=== PATIENT | female | born 1970 | race Caucasian/White ===

== ENCOUNTER 2017-01-13 23:34 | Emergency (ER) | payer OTHER ==
[~2017-01-13] VITALS: Ht 182.9 cm; Wt 70.8 kg
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
[2017-01-14 01:03] LABS: MEAN CORPUSCULAR HGB 20.9 PG (27.0-31.0)
[2017-01-14 01:07] LABS: HEMATOCRIT 31.9 % (37-47); MEAN CORPUSCULAR HGB CONC 30.6 G/DL (33.0-37.0); MEAN CORPUSCULAR VOLUME 68.2 FL (81.0-99.0); MEAN PLATELET VOLUME 9.2 FL (7.4-10.4); PLATELET COUNT 236 /CUMM (130-400); RBC DISTRIBUTION WIDTH 18.4 % (11.5-14.5); RED BLOOD CELL CT 4.69 /CUMM (4.20-5.40); WHITE BLOOD CELL COUNT 10.4 /CUMM (4.8-10.8)
[2017-01-14 01:29] VITALS: BP 115/66
--- NOTE | 2017-01-14 04:01 | CT SCAN REPORT ---
EXAMINATION: CTA CHEST FOR AORTIC DISSECTION CLINICAL INFORMATION: Marfan's, chest pain to right shoulder, question dissection COMPARISON: None TECHNIQUE: 95 mL Optiray 320 IV contrast was utilized. Multidetector helical imaging was performed through the chest prior to and following the administration of IV contrast per CTA protocol. Coronal, sagittal, and MIP images of the chest were created. FINDINGS: Although assessment of the aorta on the noncontrast series is somewhat limited due to motion artifact, there are no suspicious findings to suggest intramural hematoma. No evidence of aortic dissection on the postcontrast series. The ascending aorta measures approximately 3.1 cm in diameter. Great vessels are widely patent off the aortic arch, and the visualized portions of the bilateral carotid, subclavian, and vertebral arteries appear widely patent. The origins of the celiac, superior mesenteric, and bilateral renal arteries are patent in the upper abdomen. No regions of consolidation bilaterally. Biapical scarring is noted. No pneumothorax or pleural effusion. The visualized thyroid gland is unremarkable. No mediastinal lymphadenopathy. Cardiac size is within normal limits; no significant pericardial effusion. No filling defects are seen in the main, lobar, or segmental pulmonary arteries to suggest the presence of pulmonary emboli. No axillary lymphadenopathy is present. There is subcentimeter hypoattenuating foci in the visualized liver, too small to characterize. No acute osseous findings are seen. IMPRESSION: No evidence of aortic dissection. No acute intrathoracic findings identified.
== END 2017-01-14 04:05 ==
LOC: ERH 23:34
PROVIDERS: Emergency Medicine
DX: R07.89 Other chest pain (principal)
CPT/HCPCS: 93005; 93010